=== PATIENT | female | born 1935 | race Caucasian/White ===

== ENCOUNTER 2023-09-01 12:16 | Emergency (ER) | payer OTHER, SELFPAY ==
[2023-09-01 12:21] VITALS: BP 123/90
--- NOTE | 2023-09-01 14:19 | ED.GENMED ---
History of Present Illness
General
Chief Complaint: Musculo-Skeletal Complaint
Source: patient
Time Seen by Provider: 09/01/23 13:47
Travel History
Have you had any contact with someone who has COVID-19?: No
Do you have any symptoms of coronavirus? Fever > 100 degrees, chills, cough, shortness of breath, sore throat, loss of taste or smell, muscle aches, or headache?: No
History of Present Illness
History of Present Illness:
87 female with past medical history of hypertension hyperlipidemia presenting emergency department after she injured her right knee walking when she notes that she twisted it and felt pain along the lateral aspect of the knee, continued over the
last few days but yesterday started having increased difficulty ambulating and needed to use a cane and walker to help her ambulate. She notes today symptoms do seem improved albeit still uncomfortable prompting her to come to the ER for further
evaluation. 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 She denies any fevers or any other concerns.
Past History
Past History
ED Past Medical History: HTN and Hypercholesterolemia
ED Past Surgical History: Cholecystectomy and Gynecological
Social History
Tobacco: Non-smoker
Alcohol: None
Drug: None
Personal:
Living: alone
Review of Systems
Review of Systems
All Other Systems: ROS reviewed and negative except as documented in HPI and ROS
Phy Exam
Physical Exam
Physical Exam:
GENERAL: Alert , in no apparent distress
EYE: conjunctiva clear
Head: Normocephalic atraumatic
NECK: Supple,
ENT: mmm.
LUNGS: no acute respiratory distress
NEUROLOGICAL: Alert and oriented
SKIN: Warm and dry, skin intact.
MUSCULOSKELETAL: Right knee: No obvious deformity, erythema, edema, ecchymosis, abrasion or laceration. Patient has full active and passive range of motion of the right knee with minimal discomfort. No palpable joint effusion. Remainder of
extremity is within normal limits and neurovascularly intact.
PSYCH: Normal and appropriate interaction.
Scores
Heart Failure Risk
Heart Failure Risk Score: Not Applicable
Heart Score for Chest Pain Patients
STEMI patient?: Not applicable
Withdrawal Assessment of Alcohol
Withdrawal Assessment Completed?: Not applicable
Course
Orders/Labs/Results
Orders:
Orders
09/01/23 12:24
Knee, Right 4 or More Views [CR Knee- Right 4 Or More View*] Urgent
Comment:
Reason For Exam: twisted right knee diff walking due to pain
Vital Signs
Initial and Last Documented VS:
Initial Vital Signs
Temp Pulse Resp BP Pulse Ox
98.0 F 74 16 123/90 98
09/01/23 12:21 09/01/23 12:21 09/01/23 12:21 09/01/23 12:21 09/01/23 12:21
Last Documented Vital Signs
Temp Pulse Resp BP Pulse Ox
98.0 F 74 16 123/90 98
09/01/23 12:21 09/01/23 12:21 09/01/23 12:21 09/01/23 12:21 09/01/23 12:21
MDM/Problems Addressed
Differential Diagnosis Includes:
Meniscus injury, ligamentous injury, minimal concern for fracture or dislocation
MDM/Problems Addressed:
87-year-old female presenting emergency department for evaluation of atraumatic right knee pain along the lateral aspect of the knee over the last few days stating she had twisted the knee and has been having pain since. X-ray was ordered from
triage and ultimately does not show any acute fracture or pathology. There is noted degenerative changes which I suspect could be playing a role in patient's symptoms today. She is able to get around with a walker and cane at home and feels
comfortable being discharged home. She will contact her orthopedist tomorrow for a follow-up visit. Aware of return precautions to the emergency room.
*Radiology
Radiology exam reviewed: preliminary read by ED provider (Degenerative changes. No fracture or dislocation)
*Pulse Oximetry
Patient hypoxic: no
*Critical Care Note
Total Time (30-74mins, 75-104mins- exclusive of procedures): Not Applicable
ED Attending Note
-
Portions of this chart may have been created with voice recognition software.� Occasional wrong word or��sound alike� substitutions may have occurred due to the inherent limitations of voice recognition software.
Discharge Plan
Departure
Patient Disposition: Home (Routine Discharge)
Date of Disposition: 09/01/23
Time of Disposition: 14:19
Patient with high blood pressure during this ER visit?: No
Discharge Problem:
Pain in right knee
Instructions: Knee Pain (DC)
Referrals:
Sandy Jonas MD [Family Provider] -
Interventions
Interventions:
*ED COVID-19 Vaccine History Last Done: 09/01/23 12:21
ED-Musculoskeletal Assessment Last Done: 09/01/23 13:21
[2023-09-01 14:33] VITALS: BP 167/77
== END 2023-09-01 14:34 | disposition home or self-care (01) ==
LOC: EMR 12:16
PROVIDERS: EMERGENCY PHYSICIAN Emergency Medicine; FAMILY PHYSICIAN Internal Medicine
DX: M25.561 Pain in right knee (principal); S89.91XA Unspecified injury of right lower leg, initial encounter; X50.1XXA Overexertion from prolonged static or awkward postures, initial encounter; I10 Essential (primary) hypertension; E78.00 Pure hypercholesterolemia, unspecified; M17.0 Bilateral primary osteoarthritis of knee; Z90.49 Acquired absence of other specified parts of digestive tract
CPT/HCPCS: 99283; 73564